=== PATIENT | female | born 1960 | race Two or more races ===

== ENCOUNTER 2018-07-15 10:18 | Outpatient (CLI) | payer OTHER | END 2018-07-15 10:23 | disposition home or self-care (01) | LOC: SONOGRAMA 10:18 | DX: E04.1 Nontoxic single thyroid nodule (principal) ==

== ENCOUNTER 2020-01-23 08:06 | Outpatient (CLI) | payer OTHER | END 2020-01-23 08:53 | disposition home or self-care (01) | LOC: SONOGRAMA 08:06 | PROVIDERS: ATTEND Pathology Anatomic Pathology & Clinical Pathology | DX: E04.1 Nontoxic single thyroid nodule (principal) ==